=== PATIENT | female | born 1950 | race Caucasian/White ===

== ENCOUNTER 2021-02-14 14:52 | Emergency (ER) | payer OTHER ==
[~2021-02-14] VITALS: Ht 162.6 cm; Wt 90.7 kg
[2021-02-14] MEDS ORDERED: JANTOVEN4 MG PO (15:26)
[2021-02-14] MEDS ORDERED: PRAVASTATIN SOD80 MG PO (15:27)
[2021-02-14] MEDS ORDERED: MEMANTINE HCL E28 MG PO (15:27)
[2021-02-14] MEDS ORDERED: ARICEPT10 M1 PO (15:27)
[2021-02-14] MEDS ORDERED: LISINOPRIL20 MG PO (15:27)
[2021-02-14] MEDS ORDERED: SERTRALINE HCL100 MG PO (15:27)
[2021-02-14] MEDS ORDERED: ZETIA10 MG PO (15:28)
[2021-02-14] MEDS ORDERED: VITAMIN D325 MC3 PO (15:28)
[2021-02-14] MEDS ORDERED: VITAMIN C1000 MG PO (15:28)
[2021-02-14 15:46] LABS: ABSOLUTE NEUTROPHILS 4.8 thou/uL (1.4-8.2); BASOPHILS 0.6 % (0.0-2.0); EOSINOPHILS 0.9 % (0.0-3.0); HEMATOCRIT 42.7 % (37.0-47.0); HEMOGLOBIN 14.4 gm/dL (12.0-15.0); LYMPHOCYTES 25.4 % (24.0-44.0); MCHC 33.7 g/dL (28.0-37.0); MCV 91.9 fL (80.0-100.0); MONOCYTES 7.7 % (1.0-8.0); PLATELET COUNT 183 thou/uL (150-400); POLYS 65.4 % (36.0-66.0); RBC 4.65 mil/uL (4.20-5.00); RDW 13.1 % (10.5-14.5); WBC 7.3 thou/uL (4.0-11.0)
[2021-02-14 15:58] LABS: CALCIUM 9.2 mg/dL (8.5-10.1)
--- NOTE | 2021-02-14 16:28 | EKG ---
[place] [address] [facility] [place] [address] ELECTROCARDIOGRAM REPORT Name: CHERRY RUTHERFORD Room #: REG Kisha.#: [id number] Admission: 02/14/21 Attend Phys: Discharge: Date of : 52 Report #: [id number] [facility] ED Test Date: 2021-02-14 Test Time: 15:27:14 Pat Name: CHERRY RUTHERFORD Department: Room: Gender: F Camp Recreation Specialist: FLO : 1950 Requested By: Bharathi Thorne Order Number: [id number] MD: Chino Sierra Measurements Intervals [place] Rate: 51 P: 18 NE: 176 QRS: -31 QRSD: 88 T: 6 QT: 417 QTc: 385 Interpretive Statements Sinus rhythm Low voltage, precordial leads Left ventricular hypertrophy Anterior Q waves, possibly due to LVH No previous ECG available for comparison Electronically Signed On 02-14-2021 16:28:06 CDT by Chino Sierra [email or web address] <ELECTRONICALLY SIGNED> By: Chino Sierra MD, LOCATED WITHIN [facility] 02/14/21 1628 1527 1527 Chino Sierra MD, FACC /EPI
[2021-02-14 16:42] LABS: URINE BILIRUBIN NEGATIVE (Negative); URINE BLOOD 1+ (Negative); URINE CLARITY CLEAR; URINE COLOR YELLOW; URINE GLUCOSE-RANDOM* NEGATIVE (Negative); URINE KETONES NEGATIVE (Negative); URINE LEUKOCYTES-REFLEX NEGATIVE (Negative); URINE NITRITE-REFLEX NEGATIVE (Negative); URINE PROTEIN (DIPSTICK) NEGATIVE (Negative); URINE SPECIFIC GRAVITY >= 1.030 (1.005-1.035); URINE UROBILINOGEN 0.2 E.U./dl (0.2-1.0)
[2021-02-14 16:52] LABS: SQUAMOUS 4-10 Moderate /LPF (0-3)
[2021-02-14 16:53] LABS: BACTERIA-REFLEX 1-9 Few /HPF (None Seen); CASTS None Seen /LPF (None Seen); CRYSTALS None Seen /LPF (None Seen); URINE RBC 1-2 Rare /HPF (NONE SEEN); URINE WBC-REFLEX None Seen /HPF (0-5)
[2021-02-14 17:48] VITALS: BP 150/76
== END 2021-02-14 18:40 | disposition admitted as inpatient to this hospital (09) ==
LOC: ER 14:52
PROVIDERS: Nurse Practitioner
DX: S00.83XA Contusion of other part of head, initial encounter (principal); Z20.822 Contact with and (suspected) exposure to COVID-19; G30.9 Alzheimer's disease, unspecified; R41.0 Disorientation, unspecified; Z79.01 Long term (current) use of anticoagulants; W19.XXXA Unspecified fall, initial encounter; Y93.89 Activity, other specified; Y92.89 Other specified places as the place of occurrence of the external cause; Y99.8 Other external cause status

== ENCOUNTER 2021-02-14 17:50 | Inpatient (IN) | payer OTHER ==
[~2021-02-14] VITALS: Ht 165.1 cm; Wt 88.9 kg
[~2021-02-14 17:50] MED LIST: ARICEPT10 M1 PO; JANTOVEN4 MG PO; LISINOPRIL20 MG PO; MEMANTINE HCL E28 MG PO; PRAVASTATIN SOD80 MG PO; SERTRALINE HCL100 MG PO; VITAMIN C1000 MG PO; VITAMIN D325 MC3 PO; ZETIA10 MG PO
[2021-02-14 18:20] VITALS: BP 153/66
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
[2021-02-15 07:40] LABS: INR 3.29; PROTIME 33.9 Seconds (10.5-12.1)
--- NOTE | 2021-02-15 08:25 | NUR ---
Assess due to new admit to [facility] with alzheimers dementia and behaviors. Receptive to food/snacks upon admit. BMI 32.8. Presents low nutrition risk and will follow weekly.
[2021-02-15 09:31] VITALS: BP 146/81
--- NOTE | 2021-02-15 12:02 | NUR ---
PATIENT CARE ASSUMED AT 0700 - CONFUSED, WANDERING ABOUT UNIT. FIXATED ON LEAVING AND NEEDING TO GO HOME. CONSTANT REDIRECTION REQUIRED - ALERT TO SELF. RETENTION POOR - ANXIOUS ABOUT BEING HERE. TEARFUL AT TIMES - COMPLIANT WITH MEDICATIONS WHEN ADMINISTERED.
[2021-02-15 18:59] VITALS: BP 95/61
--- NOTE | 2021-02-16 01:51 | NUR ---
Assumed pt care at 1900. pt was alert and oriented to person and situation. calm and co-operative with care. pt was compliant with pediatrician/medical doctor. Took meds whole, no difficulty noted. Denies si/hi. Denies pain. Ambulates with a steady gait. spoke to on the phone. pt was not too happy after her conversation with . At this time pt is sleeping . will continue to monitor.
[2021-02-16 09:12] VITALS: BP 133/59
--- NOTE | 2021-02-16 09:49 | NUR ---
Received awake on bed. Due medications given as prescribed, able to swallow meds w/o difficulty. On room air. Vital signs stable. On regular diet- tolerating well; no nausea, no vomiting and no abdominal pain noted. Continent of bowel and bladder, able to go to the toilet independently; with minimal supervision given. No IV noted. With bruise on her chin, skin intact. No IV noted. On bleeding precautions. Independent with ADLs. No complains of pain made during assessment. Able to walk in the hallways; redirected to where her room was at times. No suicidal or homicidal ideations noted; no visual and auditory hallucinations verbalized. To continue monitoring patient.
[2021-02-16 10:02] LABS: INR 2.93; PROTIME 30.3 Seconds (10.5-12.1)
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
[2021-02-16 17:36] LABS: ALBUMIN 3.6 g/dL (3.4-5.0); DIRECT BILIRUBIN 0.2 mg/dL (<0.1-0.2); TOTAL BILIRUBIN 0.8 mg/dL (0.2-1.0); TOTAL PROTEIN 6.4 g/dL (6.4-8.2)
[2021-02-16 19:51] VITALS: BP 96/55
--- NOTE | 2021-02-17 01:44 | NUR ---
PATIENT AOX3 FORGETFUL AT TIMES. PATIENT DENIED PAIN OR DISCOMFORT. PATIENT DENIED ALL PSYCH ISSUES. PATIENT ENCURAGED FLUIDS. PATIENT HAD A FLAT AFFECT, POOR EYE CONTACT, FAIR GROOMING AND HYGIENE. PATIENT AMBULATES WITH STEADY GAITS. BRUISE NOTED ON THE CHIN. PATIENT CALM AND COOPERATIVE WITH MEDS AND CARE. PATIENT IN BED ASLEEP AT THIS TIME BREATHING REGULAR AND UNLABOURED.
[2021-02-17 04:52] LABS: HEMATOCRIT 39.5 % (37.0-47.0); HEMOGLOBIN 13.6 gm/dL (12.0-15.0); MCHC 34.4 g/dL (28.0-37.0); MCV 93.1 fL (80.0-100.0); RBC 4.24 mil/uL (4.20-5.00); RDW 13.2 % (10.5-14.5); WBC 5.3 thou/uL (4.0-11.0)
[2021-02-17 04:57] LABS: CALCIUM 8.9 mg/dL (8.5-10.1); CREATININE 1.2 mg/dL (0.6-1.0); POTASSIUM 4.2 mmol/L (3.5-5.1)
[2021-02-17 05:11] LABS: INR 2.63; PROTIME 27.4 Seconds (10.5-12.1)
--- NOTE | 2021-02-17 08:54 | NUR ---
RAPID RESPONSE CALLED FOR PATIENT WHO SEEM TO HAVE AN UNWITTNESSED FALL IN [facility] UNIT HALLWAY AND WAS NOT RESPONDING ON INITIAL ASSESSMENT BY NURSES ON THE UNIT. SEE RR FLOWSHEET FOR DETAILS.
--- NOTE | 2021-02-17 08:58 | NUR ---
ASSUMED CARE AT 0800. AFTER BREAKFAST WENT TO THE FAR HALLWAY FROM THE DINING ROOM. SHE WAS IN THE BEAR ALONE. STAFF FOUND HER ON THE FLOOR. IN REVIEWING THE CAMERA, IT APPEARED SHE LOOKED TO SEE WHO WAS WATCHING AND THEN WENT TO THE FLOOR. IT DID NOT APPEAR TO BE A FALL. A RAPID RESPONSE WAS CALLED DUE TO THE FACT SHE WAS NOT ANSWERING QUESTIONS AND APPEARED ASLEEP. VITALS WERE TAKEN WHILE SHE WAS ON THE FLOOR. IT WAS B/P 168/88, O2 100, PULSE 107, TEMP 97.8. AN EKG WAS DONE ALSO. IT SHOWED NSR. SHE WAS GOTTEN UP SLOWLY OFF THE FLOOR. SHE WAS PLACED IN A W/C. SHE WAS TAKEN TO THE DINING ROOM. SHE SAT THERE A BIT AND THEN STOOD UP TO LEAVE. I ASKED HER TO RETURN TO THE W/C SHE WAS UNSTEADY AND I DO NOT WANT HER FALLING, AND SHE NEEDS TO BE WHERE PEOPLE CAN SEE HER. SHE SAID, "WHY DO YOU DO THIS TO ME?" I REPLIED WE WERE JUST TRYING TO KEEP HER SAFE AND TO BE WHERE PEOPLE ARE IS ONE WAY TO DO THIS. HER MORNING VITALS WERE B/P 142/69, PULSE 58, RESPIRATIONS 17, TEMP 97.0, AND O2 SAT WAS 100. CALLED DR. WATTERS. SHE WAS PAGED SEVERAL TIMES WITHOUT RETURNING A CALL. WILL CONTINUE TO MONITOR.
[2021-02-17 09:46] VITALS: BP 171/87
[2021-02-17 09:52] VITALS: BP 142/69
[2021-02-17 10:43] VITALS: BP 142/69
[2021-02-17 19:17] VITALS: BP 124/64
--- NOTE | 2021-02-18 00:51 | NUR ---
ASSUMED CARE OF PT AT SHIFT CHANGE. PT IS AOX2-3 AND CAN BE CONFUSED/FORGETFUL. PT IS UP AD BLANKA. ASSESSMENT CHARTED. PT ASKS WHEN SHE CAN GO HOME FREQUENTLY. PT TOOK ALL HS MEDS WITH WATER. PT DENED PAIN, NAUSEA, SOA, SI OR HI. PT MINGLES WITH PEERS. PT WAS ABLE TO GET COMFORTABLE AND SLEEP PART OF THE SHIFT. VSS AND NO S/S OF ACUTE DISTRESS. WILL CONTINUE TO MONITOR.
[2021-02-18 05:46] LABS: INR 2.72; PROTIME 28.3 Seconds (10.5-12.1)
--- NOTE | 2021-02-18 07:06 | EKG ---
[facility] [address] [place] [address] ELECTROCARDIOGRAM REPORT Name: CHERRY RUTHERFORD Room #: 518A-A ADM IN M.R.#: [id number] Admission: 02/14/21 Attend Phys: Ramin Burnham DO Discharge: Date of : 52 Report #: [id number] [facility] Test Date: 2021-02-17 Test Time: 08:34:24 Pat Name: CHERRY RUTHERFORD Department: Room: [facility] A Gender: F Operations Manager Station: MAIKOL : 1950 Requested By: Yudelka Pelayo Order Number: [id number] MD: Chino Sierra Measurements Intervals [place] Rate: 53 P: 12 [place]: 179 QRS: -37 QRSD: 92 T: 35 QT: 434 QTc: 408 Interpretive Statements Sinus rhythm Probable left ventricular hypertrophy Compared to ECG 02/14/2021 15:27:14 Q waves no longer present Electronically Signed On 02-18-2021 7:05:57 CDT by Chino Sierra [email or web address] <ELECTRONICALLY SIGNED> By: Chino Sierra MD, [facility] 02/18/21 07 0834 3 Chino Sierra MD, FAC /EPI
--- NOTE | 2021-02-18 09:03 | NUR ---
ASSUMED CARE AT 0700 THIS MORNING. PT. WAS ON THE FLOOR AT THE END OF THE HALLWAY. STAFF INFORMED HER THE DR. WOULD NOT CONSIDER HER FOR DISCHARGE IF SHE WAS GOING TO DO THIS EVERY DAY. SHE THEN GOT UP OFF THE FLOOR AND WENT TO THE DINING ROOM. NO FURTHER PROBLEMS NOTED AT THIS TIME. SHE WAS COOPERATIVE WITH TAKING HER MEDICATIONS AND EATING BREAKFAST. SHE TRIED TO ASSIST ANOTHER PATIENT WITH HER BREAKFAST ALSO.
[2021-02-18 09:09] VITALS: BP 151/73
[2021-02-18 11:25] VITALS: BP 151/73
--- NOTE | 2021-02-18 12:24 | NUR ---
FELICIA contacted Robert and scheduled a family meeting for 02/19/2021 @1230 pm. FELICIA also sent a [facility] welcome email to him at [email or web address]. FELICIA team will continue to follow pt during her stay on this unit.
[2021-02-18 19:58] VITALS: BP 106/55
[2021-02-18 20:30] VITALS: BP 106/55
--- NOTE | 2021-02-19 02:07 | NUR ---
Assumed pt care at 1900. Pt's A/OX2,able to voice needs. VSS.Denied pain on assessment. Up ad anne-marie w/o any problems,very helpful to other pt's when in the day room. Took HS meds w/o any problems. Wandering at the beginning of the shift on hallways. Resting quietly in bed at this time w/o any distress noted,will continue to monitor pt. Fall precautions in place. No other behavior issues noted at this time.
[2021-02-19 08:55] VITALS: BP 122/56
--- NOTE | 2021-02-19 11:09 | NUR ---
Alert to name only. Calm, cooperative and compliant. Sitting in recliner most of AM. Denies SI/HI. Breath sounds clear. Reg HR auscultated. Color pink with brisk capillary refill and palpable peripheral pulses. Independent with voiding. Active bowel sounds over soft, rounded abdomen. Milk of magnesia given with prune juice d/t no documented BM since 02/14. Ambulating with regular, steady gait.
--- NOTE | 2021-02-19 13:33 | NUR ---
SW attended a family meeting via phone with pt's Robert and pt's daughter Rosie. Discharge planning was discussed including care home placement or if pt is going home with and he will provide 24 hour care and support. Robert said he will talk things over with Rosie and give SW an answer tomorrow. He did ask that SW submit a request for Medicaid screening with [employer]. SW team will continue to follow pt during her stay on this unit.
[2021-02-19 19:00] VITALS: BP 117/51
--- NOTE | 2021-02-20 04:44 | NUR ---
02-19-21 CARE TRANSFERRED 0 OBSERVED PT SITTING IN RECLINER IN DAY ROOM. LATER PT AAOX1, VSS, RR EVEN AND NONLABORED ON RA. PT REPORTS PAIN IN NECK AND SOCRES AT 5 ON 0-10 SCALE. PT DENIES SI/HI. PT PRESENTS PLEASANT WITH CONFUSION AND HAS REMAINED CALM AND COOPERATIVE. DURING MEDICATION ADMIN PT ASKED WHEN HER WOULD BE HERE TO PICK HER UP; PT WAS EASILY REDIRECTED AND REASSURED. LATER ASSISTED PT TO ROOM AND PT WAS PLEASANT WITH KINDNESS, PT BED WAS ADJUSTED FOR PT COMFORT AND ALARM SET. LATER NOTED PT RESTING WITH EYES CLOSED. ZERO S/S OF ACUTE DISTRESS NOTED, PT WILL CONTINUE TO BE MONITOR PER [facility] PROTOCOL.
[2021-02-20 08:00] VITALS: BP 136/68
--- NOTE | 2021-02-20 08:19 | NUR ---
RT Progress Note- Louise has been present in both the milieu and recreation therapy groups throughout her admission. With prompting and task breakdown, Louise is able to participate well and also interacts with peers. Louise has difficulty finding words and formulating sentences at times which visibly causes her some frustration and sadness. MERGERS AND ACQUISITIONS BANKER will continue to encourage participation to improve mood and socialization as well as to provide a structured environment.
--- NOTE | 2021-02-20 10:50 | NUR ---
Alert to name only this AM. Denies SI/HI. Wants to know if is here. Breath sounds clear. Reg HR auscultated. Color pink with brisk capillary refill and palpable peripheral pulses. Independent with voiding. No documented BM since admission, MOM given yesterday, will repeat today. Active bowel sounds over soft, rounded abdomen. Compliant with meds, took with liquid. Ambulating with regular, steady gait. Participating in groups this AM.
--- NOTE | 2021-02-20 15:42 | NUR ---
FELICIA contacted Robert to inquire if he had come to a decision yet. No answer. FELICIA left a msg. FELICIA contacted pt's daughter Rosie who said she is leaving work and will call FELICIA back in a few min. SW team will continue to follow pt during her stay on this unit.
[2021-02-20 19:00] VITALS: BP 100/49
--- NOTE | 2021-02-21 01:12 | NUR ---
ASSESSED AT START OF SHIFT 1900. PT A&0X2-3 FORGETFULL. UP AD BLANKA WAS SEEN WANDERING THE HALLWAYS AT START OF SHIFT. EVENING MEDS GIVEN WHOLE WITH WATER AND PT NITA IT WELL. DENIES PAIN. LATER WENT TO URSZULA AND NOW RESTING COMFORTABLY IN BED. WILL CONT TO MONITOR. NO FURTHER SIGNS OF DISCOMFORT.
[2021-02-21 07:23] VITALS: BP 144/67
--- NOTE | 2021-02-21 08:40 | NUR ---
Nutrition f/u: Recent intake 100% most meals. No recent wt recorded. BUN 19, Cr 1.2, albumin 3.6. Meds reviewed. Continues at low nutrition risk.
--- NOTE | 2021-02-21 09:23 | NUR ---
FELICIA contacted Robert to confirm her conversation from yesterday with pt's daughter. Robert confirmed that he indeed plans to take pt home. He asked FELICIA to fax a referral to [facility] [phone] F [phone] FELICIA team will continue to follow pt during her stay on this unit.
[2021-02-21 10:08] VITALS: BP 144/67
--- NOTE | 2021-02-21 10:50 | NUR ---
Assumed pt care at 0700. pt was alert and oriented to self. Assessments completed, vss. pt took meds whole, no difficulty noted. Ambulates with a steady gait. Denies si/hi. At this time there is no c/o of pain. pt is continent of bowel and bladder. bowel sounds are active. no bowel report at this time. pt last bowel report was the 02/14/21. aT THIS TIME PT IS IN THE DAY ROOM. will continue to monitor.
[2021-02-21 19:44] VITALS: BP 111/72
--- NOTE | 2021-02-22 04:21 | NUR ---
ASSESSMENT: PT REMAIN ALERT AND ORIENT TIMES ONE. PLEASANT AND COOPERATIVE. DENIES PAIN, SOB AND N/V. VSS, AFEBRILE. TOOK MEDS WITHOUT DIFFICULTY. SLEPT MOST OF THE NIGHT, UNEVENTFUL. SLOW PROGRESS TOWARDS DC GOALS, WILL CONTINUE TO MONITOR.
[2021-02-22 10:10] VITALS: BP 124/61
[2021-02-22 10:18] VITALS: BP 124/61
--- NOTE | 2021-02-22 11:45 | NUR ---
FELICIA contacted Robert to arrange d/c of pt for Thursday. No answer. FELICIA left a vm. FELICIA team will continue to follow pt during her stay on this unit.
--- NOTE | 2021-02-22 12:15 | NUR ---
In tx team it was discussed that pt is ready for d/c on Thursday. SW contacted pt's who agreed upon a 1030 am d/c. He said pt's PCP is Mary Modi [phone]. FELICIA asked him if he would like information about psychiatrists for pt, and he declined. He said he'd rather keep her services with her PCP. SW team will continue to follow pt during her stay on this unit.
--- NOTE | 2021-02-22 16:46 | NUR ---
Assumed pt care at 0700. pt was oriented to self. calm and co-operative with care. Took her meds whole, no difficulty noted. Assessments completed, vss. pt ambulates with a steady gait. meds administered as ordered. no sign of acute distress noted upon assessments. Pt participated in groups. Denies si/hi, denies pain. At this time pt is eating dinner. Will continue to monitor.
[2021-02-22 19:42] VITALS: BP 109/50
--- NOTE | 2021-02-23 01:42 | NUR ---
patient aox1 confused and forgetful. patient unsteady at times. patient encouraged fluids. patient had a flat affect,poor eye contact, fair grooming and hygiene.patient contient this shift.fall precaution in place.patient in bed asleep at this time breathing regular and unlaboured.
[2021-02-23 09:09] VITALS: BP 119/55
[2021-02-23 10:52] VITALS: BP 119/55
--- NOTE | 2021-02-23 11:10 | NUR ---
Assumed pt care at 0700. pt was alert and oriented to person. Calm and co-operative with care. Assessments completed, vss. pt took meds whole, no difficulty noted. Ambulates with a steady gait. participated in groups. Denies si/hi. At this time pt denies pain. Bisacodyl administered as ordered for constipation. At this time pt is in the day room relaxing. will continue to monitor.
--- NOTE | 2021-02-23 16:33 | NUR ---
@1906 SW visit with the PT in the main room. Pt stated she was in a good mood but confused. Pt denied SI/HI. Pt did not have any concerns this morning. SW team will continue to follow
[2021-02-23 20:44] VITALS: BP 107/61
--- NOTE | 2021-02-24 04:22 | NUR ---
Assumed care on 02/23/21 @ 19:15, seated in the day room, socializing with peers. A&Ox1 10/20, not oriented to current date, president or hospital name. Denies anxiety, SI/HI. Acknowledges depression, saying she is sad that she can't go home. Reports BM today. Pleasant affect noted, cooperative with care. Requires guidance with cares and tileting, compliant with medication administration, taking meds whole with water.
[2021-02-24 06:06] LABS: INR 2.23; PROTIME 23.4 Seconds (10.5-12.1)
[2021-02-24 09:08] VITALS: BP 141/63
[2021-02-24 13:40] VITALS: BP 141/63
--- NOTE | 2021-02-24 13:49 | NUR ---
Assumed care from coal unloader nurse @ 0700, Pt was sitting at table in the day waiting for breakfast. Pt affect varies she typically has a flat affect but will occasional smile and conversate with nurse. Pt is alert and oriented x 2. Denies SI/HI, no auditory of visual hallucinations. Pt daughter did call today and the pt voiced being happy her daughter called. Pt c/o pain x 1 today in right lower quad. Dr Bateman notified, tylenol given and pt voiced relief about an hour later and she was ambulating around the unit. Pt is pleasant and cooperative with cares and participating in activities and interacting with other pt as appropriate.
[2021-02-24 18:51] VITALS: BP 110/55
--- NOTE | 2021-02-25 04:40 | NUR ---
02-24-21 CARE TRANSFERRED 1900 OBSERVED PT SITTING IN DAY ROOM. LATER PT AAOX2, VSS RR EVEN AND NONLABORED ON RA, PT DENIES PAIN AND SI/HI. PT PRESENTS PLEASANT, CALM AND COOPERATIVE. DURING MEDICATION ADMIN PT HAD NO DIFFICULTIES TAKING MEDICATION WHOLE WITH WATER. ZERO S/S OF ACUTE DISTRESS NOTED, PT WILL CONTINUE TO BE MONITOR PER [facility] PROTCOL.
[2021-02-25 09:45] VITALS: BP 131/63
[2021-02-25 11:33] VITALS: BP 131/63
--- NOTE | 2021-02-25 12:46 | NUR ---
1245 RESUMMED CARE FROM OVERNIGHT SHIFT THIS AM, PATIENT IN DAY ROOM SITTING QUIET. PATIENT DENIES SI/HI/AH/VH AT PRESENT PATIENT WAS TEARFUL ABOUT 10:00 AM. PATIENT THINKS HER ANOTHER WOMAN PATIENT WAS EASY TO COMFORT. PATIENTS ABDOMEN SOFT BOWEL SOUNDS PRESENT PATIENTS LUNGS CLEAR. PATIENT ALERT ORIENTED TO SELF AND PLACE PATIENT CALM COOPERATIVE; WILL CONTINUE TO MONITOR PATIENT FOR SAFETY AND BEHAVIORS.
--- NOTE | 2021-02-25 14:09 | NUR ---
FELICIA contacted pt's PCP Mary Modi to schedule an after discharge appt for pt. FELICIA scheduled an appt for pt on March 05 @11:15am. Fax number is [phone]. SW team will continue to follow pt during her stay on this unit.
[2021-02-25 19:44] VITALS: BP 138/83
--- NOTE | 2021-02-26 02:31 | NUR ---
02-25-21 CARE TRANSFERRED 1899 OBSERVED PT WALKING IN DAY ROOM. LATER PT AAOX4, VSS RR EVEN AND NONLABORED ON RA. PT HAS BEEN CALM AND COOPERATIVE AND LOOKING FORWARD TO GOING HOME WITH TOMORROW. PT DENIES SI/HI AND PAIN. ZERO S/S OF ACUTE DISTRESS NOTED, PT WILL CONTINUE TO BE MONITOR PER [facility] PROTOCOL.
[2021-02-26] MEDS ORDERED: TRAZODONE HCL50 MG PO (09:18)
[2021-02-26] MEDS ORDERED: SEROQUEL 50 MG50 MG PO (09:21)
[2021-02-26] MEDS ORDERED: NAMENDA XR21 MG PO (09:23)
[2021-02-26] MEDS ORDERED: COLACE 100 MG100 MG PO (09:23)
--- NOTE | 2021-02-26 11:22 | NUR ---
0700 ASSUMED CARE OF PATIENT, PATIENT IN BED AT THAT TIME. PATIENT AMB TO [id number] WITH STEADY GAIT. NO C/O PAIN, LS CLEAR, BS ACTIVE. MEDICATIONS TAKEN WHOLW WITHOUT DIFFICULTY. PATIENT CONFUSED, ORIENTED X2. 1020 PATEINTS SPOUSE HERE, CLEANING SUPERVISOR GAVE INSTRUCTION TO SPOUSE. VERBALIZED UNDERSTANDING. SCRIPTS SENT TO PATIENT PHARMACY. BELONGINGS IN HAND. PATIENT TRANSPORTED TO VEHICLE ACCOMPANIED BY STAFF AND SPOUSE. PATIENT DC'D AT 1043
[2021-02-26 16:36] VITALS: BP 138/83
--- NOTE | 2021-02-26 16:41 | NUR ---
FELICIA D/C NOTE FELICIA faxed discharge docs to pt's PCP Mary Modi. FELICIA will file docs in pt's hospital file. FELICIA contacted Robert, pt's , and confirmed that he knew about pt's upcoming appt with her PCP. He gave the correct day and time. No other needs for SW team to address at this time.
--- NOTE | 2021-02-27 22:11 | D ---
[facility] [place] [address] DISCHARGE SUMMARY Name: CHERRY RUTHERFORD Room #: 518A-A DIS IN M.R.#: [id number] Admission: 02/14/21 Attend Phys: Ethel Burnham DO Discharge: 02/26/21 Date of : 52 Report #: [id number] THIS REPORT FOR: cc: FAM - Family physician unknown FAM - Family physician unknown Ethel Burnham DO ~ DOC #: [id number] ETHEL Burnham DO DATE OF SERVICE: 02/26/2021 INPATIENT PSYCHIATRIC DISCHARGE SUMMARY ATTENDING PSYCHIATRIST: Ethel Burnham DO GLASS CYLINDER FLANGER: Ethel Mcarthur MD. DISCHARGE DIAGNOSES: Major neurocognitive disorder due to Alzheimer's disease with behavioral disturbance, improved. ADDITIONAL DIAGNOSIS: Unspecified psychosis. MEDICAL COMORBIDITIES: Constipation, hypertension; transient bradycardia, resolved; hyperlipidemia, systemic anticoagulation due to atrial fibrillation. The patient is discharging to her private home where she lives with her . The patient will be getting followup mainly through her PCP, Mary Modi, appointment is on 03/05/2021 at 11:15 a.m. At this point, Dr. Modi will manage the psych meds, but I did give recommendation to the for consideration of psychiatrist. The has a plan, though that if things deteriorate in [place], [place] he is going to place the patient in a nursing facility in [place], [place], area where his daughter lives. DISCHARGE MEDICATIONS: Warfarin 4 mg oral daily for atrial fibrillation, lisinopril 20 mg oral daily for hypertension; pravastatin sodium 80 mg 1 tablet oral at bedtime, Zetia 10 mg oral daily, Zetia and pravastatin for hyperlipidemia; Cholecalciferol (vitamin D3) 25 mcg oral daily for supplementation, vitamin C 1000 mg oral daily, trazodone 50 mg oral at bedtime for sleep, Seroquel 75 mg oral 3 times a day at 0900, 1500, and 2100 hours; memantine, I would recommend the patient take 21 mg strength has 20 mg XR, similar agitation with clinically geriatric psychiatry, docusate 100 mg oral twice daily for bowel motility. diet: fiber restricted advised the patient requires 11/05 supervision and assistance. LABORATORY DATA: This admission, of note from 02/17/2021. Hematology: H and H [address] [place] [address] DISCHARGE SUMMARY Name: CHERRY RUTHERFORD Room #: 518A-A [facility] IN M.R.#: [id number] Admission: 02/14/21 Attend Phys: Ethel Burnham DO Discharge: 02/26/21 Date of : 52 Report #: [id number] 13.6 and 39.5, white count 5.3, platelet count 166. Coagulation: PTT 23.4, INR 2.23 on 02/24/2021. Chemistries - on 02/17/2021, sodium 140, potassium 4.2, chloride 107, bicarbonate 28, anion gap 7, BUN 19, creatinine 1.2, estimated GFR 45, glucose 106, calcium 8.9, total bilirubin 0.8, direct 0.2, AST 23, ALT 37, alkaline phosphatase 83, total protein 6.4, albumin 3.6. Urinalysis showed 1+ blood, moderate squamous cells, 1-9 bacteria. No culture was triggered. COVID-19 antibody serology was negative on 02/14/2021. Lumbar spine x-ray was done on 02/21/2021, and patient informed it showed mild degenerative disk disease at L1-L2, L2-L3 and L3-L4, otherwise negative. REASON FOR ADMISSION: At the end of 01/2021, a 70-year-old female referred to [facility] by her neurologist, Dr. Flores Amezcua at [facility]. Apparently, the patient has been followed for about a decade first by Dr. Stephenson at then by Dr. Amezcua. The patient was walking off, difficult to redirect, had fallen and had a hematoma on her face, chin mainly actually. HOSPITAL COURSE: The patient was admitted to Geriatric Psychiatry Unit. Initially, the patient was quite agitated, focused on going home and going with her while measures were applied including wrapping up her scheduled Seroquel, we had success with use of the Seroquel. I would recommend a memory care placement. wants to try taking her home first and states he has a backup plan to place her in a nursing facility by his daughter in the [facility]. PHYSICAL EXAMINATION: VITAL SIGNS: On date of discharge, temperature 36.7, pulse 69, respirations 17, BP 138/83, O2 sat 99% on room air. MUSCULOSKELETAL: Normal gait and station. Wearing glasses. MENTAL STATUS EXAMINATION: This is a well-developed, fairly nourished, mildly obese female appearing stated age. Attention fair. Concentration limited. Speech normal rate, volume, and tone. Thought process - linear and goal directed. Thought content - relative poverty of thought. No psychomotor agitation, no psychomotor retardation. Mood and affect was happy, euthymic, congruent, fair range. Denied SI, HI. Denied auditory, visual, or tactile hallucinations. Oriented to self, generally that she is in a medical facility, not to time. Insight and judgment were impaired. Fund of knowledge is below average. Prognosis for this patient is unfortunately guarded due to early Alzheimer's progression of about a decade and her medical comorbidities. DO SARTHAK Gutiérrez/BERT [facility] [address] [place] [address] DISCHARGE SUMMARY Name: CHERRY RUTHERFORD Room #: 518A-A DIS IN M.R.#: [id number] Admission: 02/14/21 Attend Phys: Ethel Burnham DO Discharge: 02/26/21 Date of : 52 Report #: [id number] <ELECTRONICALLY SIGNED> By: Ethel Burnham DO 02/27/212210 52 11 Ethel Burnham DO /nt
== END 2021-02-26 10:43 | disposition home or self-care (01) | DRG 57 ==
LOC: SBH
PROVIDERS: Internal Medicine; ADMIT Psychiatry & Neurology Psychiatry; ATTEND Psychiatry & Neurology Psychiatry
DX: G30.9 Alzheimer's disease, unspecified (principal); F02.81 Dementia in other diseases classified elsewhere, unspecified severity, with behavioral disturbance; F01.50 Vascular dementia, unspecified severity, without behavioral disturbance, psychotic disturbance, mood disturbance, and anxiety; I10 Essential (primary) hypertension; E78.5 Hyperlipidemia, unspecified; I48.91 Unspecified atrial fibrillation; F29 Unspecified psychosis not due to a substance or known physiological condition; E78.00 Pure hypercholesterolemia, unspecified; R00.1 Bradycardia, unspecified; F32.9 Major depressive disorder, single episode, unspecified
CPT/HCPCS: 10880